=== PATIENT | male | born 1955 | race Caucasian/White ===

== ENCOUNTER 2022-05-05 10:12 | Outpatient (CLI) | payer OTHER, SELFPAY ==
[2022-05-05 13:53] LABS: Basophils Absolute Auto 0.03 K/uL (0.00-0.30); Basophils Percent Auto 0.5 % (0.0-3.0); Eosinophils Absolute Auto 0.15 K/uL (0.00-0.50); Eosinophils Percent Auto 2.7 % (0.0-7.0); Hematocrit 43.5 % (37.0-53.0); Hemoglobin* 14.3 gm/dL (13.5-17.5); Immature Granulocytes Abs Auto 0.01 K/uL (0.00-0.30); Lymphocytes Absolute Auto 1.43 K/uL (0.90-2.90); Lymphocytes Percent Auto 25.8 % (20-44); Mean Corpuscular HGB Conc 33 gm/dL (32-36); Mean Corpuscular Hemoglobin 30 pg (26-34); Mean Corpuscular Volume 90 fL (80-100); Monocytes Percent Auto 12.1 % (0.0-11.0); Neutrophils Absolute Auto 3.26 K/uL (1.7-7.0); Neutrophils Percent Auto 58.7 % (42.0-72.0); Platelet Count* 252 K/uL (140-440); RDW Coefficient of Variation % 12.7 % (11.5-15.5); Red Blood Count 4.82 m/uL (4.30-5.90); White Blood Count* 5.55 K/uL (4.50-11.00)
[2022-05-05 13:57] LABS: Slide Review Reflex No
[2022-05-05 14:04] LABS: Chloride* 108 mmol/L (96-114); Potassium* 5.1 mmol/L (3.6-5.1); Sodium* 141 mmol/L (135-149)
[2022-05-05 14:06] LABS: Cholesterol* 177 mg/dL (90-199); Creatinine* 1.1 mg/dL (0.5-1.5); Estimated Glomerular Filt Rate 73.58
[2022-05-05 14:07] LABS: Blood Urea Nitrogen* 31 mg/dL (7-30); Calcium* 8.8 mg/dL (8.4-10.6); Carbon Dioxide* 26 mmol/L (20-32); Glucose* 98 mg/dL (60-115); HDL Cholesterol* 70 mg/dL (>=40); LDL Cholesterol Calculated 91 mg/dL (<100); Triglycerides* 78 mg/dL (40-149)
[2022-05-06 14:11] LABS: Thyroid Stimulating Hormone* 0.059 uIU/mL (0.270-4.20)
== END 2022-05-05 10:13 | disposition home or self-care (01) ==
PROVIDERS: PCP Family Medicine; Visit Provider Family Medicine
DX: I10 Essential (primary) hypertension (principal); E03.9 Hypothyroidism, unspecified; M17.12 Unilateral primary osteoarthritis, left knee
CPT/HCPCS: 36415; 80048; 80061; 84443; 85025

== ENCOUNTER 2023-05-18 08:29 | Outpatient (CLI) | payer OTHER, SELFPAY | END 2023-05-18 08:30 | disposition home or self-care (01) | PROVIDERS: PCP Family Medicine; Visit Provider Family Medicine | DX: I10 Essential (primary) hypertension (principal); E03.9 Hypothyroidism, unspecified; Z13.6 Encounter for screening for cardiovascular disorders | CPT/HCPCS: 80048; 80061; 84443 ==

== ENCOUNTER 2024-02-25 11:22 | Outpatient (CLI) | payer OTHER, SELFPAY ==
--- OUTSIDE RECORDS SUMMARY | 2024-02-25 11:25 | XMS_ITS | Clinical Summary ---
Author Name Unknown Organization [email or web address] [facility] Address [place], [place] [address] Care Team Providers Care Returned Materials Inspector Name Role Phone Sascha Rendon MD Primary Care Provider + Allergies Active Allergy Reactions Criticality Noted Date Comments Lisinopril Cough 06/08/2017 Medications Medication Sig Dispensed Refills Start Date End Date Status NITROGLYCERIN 0.4 MG SUBLINGUAL TABIndications:Chest pain, unspecified take one beneath your tongue for chest pain may repeat every 5 minutes as need for chest pain 25 12 months 02/23/2008 Active irbesartan (AVAPRO) 300 mg tablet Take 300 mg by mouth once daily. Active aspirin chewable 81 mg chewable tablet Take 81 mg by mouth once daily with a meal. Active amLODIPine (NORVASC) 5 mg tablet Take 5 mg by mouth once daily. Active levothyroxine (SYNTHROID) 200 mcg tablet Take 200 mcg by mouth once daily. 07/31/2021 Active levothyroxine (SYNTHROID) 25 mcg tablet Take 25 mcg by mouth once daily. 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 Unspecified essential hypertension 03/28/2008 Routine general medical exam ination at a health care facility 08/31/2007 Overview: Colonoscopy - normal - 10/04 PSA - normal - 09/04 Screening for colon cancer Resolved Problems Problem Noted Date Diagnosed Date Resolved Date 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 tb Hypertension Mother Stroke Mother Thyroid Disease Sister 5 Good Health Sister 6 brain tumor vahid ign? pressure Increased ICP-resected Good Health Sister 7 Good Health Sister 8 Relation Name Status Comments Brother 1 Alive Brother 2 Brother 3 Daughter 1 Daughter 2 Daughter 3 Father (Age 74) Mother (Age 84) Sister 1 Alive Sister 2 Alive Sister 3 Alive Sister 4 Alive Sister 5 Sister 6 Sister 7 Sister 8 Social History Tobacco Use Types Packs/Day Years Used Date Smoking Tobacco: Never Smokeless Tobacco: Never Alcohol Use Standard Drinks/Week Comments Yes 0 (1 standard drink = 0.6 oz pur e alcohol) Social Sex and Gender Information Value Date Recorded Sex Assigned at Not on file Gender Identity Not on file Sexual Orientation Not on file Obstetrics History Last Filed Vital Signs Vital Sign Reading Time Taken Comments Blood Pressure 154/91 09/10/2021 11:14 AM HEALTH SYSTEMS ANALYST Pulse 56 09/10/2021 11:14 AM HEALTH SYSTEMS ANALYST Temperature 36.9 ??C (98.4 ??F) 08/11/2017 7:19 AM CD T Respiratory Rate 16 08/11/2017 8:45 AM CDT Oxygen Saturation 98% 09/10/2021 11:14 AM HEALTH SYSTEMS ANALYST Inhaled Oxygen Concentration - - Weight 102 kg (224 lb 14.4 oz) 09/10/2021 11:14 AM HEALTH SYSTEMS ANALYST Height 182.9 cm (6') 08/11/2017 7:19 AM CDT Body Mass Index 30.5 08/11/2017 7:19 AM CDT Plan of Treatment Health Maintenance Due Date Last Done Comments Tdap 1965 Depression screening for age 12+ 1966 Hepatitis C screening for age 18-79 1972 Tetanus booster 1974 Zoster (shingles) series for age 50+ (1 of 2) 2004 Lipids for age 45-75 02/23/2013 02/24/2008 BMI (ht and wt on same day) for age 18+ 07/26/2018 07/26/2017 Medicare Wellness for age 65+ 2019 Pneumococcal series for age 65+ (1 of 1 - PCV) 2019 COVID-19 vaccine series (3 - season) 2023 09/04/2021, 01/12/2021 Influenza for age 65+ 07/02/2024 10/22/2009 , 10/22/2009, 08/31/2007 Colonoscopy through age 75 08/11/2027 08/11/2017 Procedures Procedure Name Priority Date/Time Associated Diagnosis Comments COLONOSCOPY 08/11/2017 7:16 AM CDT LIPID PANEL Routine 02/24/2008 8:53 AM CDT Hypertension from Last 3 Months or Most Recently Relevant to Health Maintenance Results * COLONOSCOPY (08/11/2017 7:16 AM CDT) 08/11/2017 7:16 AM CDT Narrative Transcriptions Ryan Wylie MD - 08/11/2017 8:32 AM CDT Patient Name: Gómez Shah Procedure Date: 08/11/2017 Gender: Male Date of : 1955 Admit Type: Ambulatory Procedure: Colonoscopy Proceduralist: Ryan Wylie [facility] Referring MD: Rik Faust Indications/Pre-Op Diagnosis: Screening for colorectal malignantneoplasm Medications: Midazolam 5 mg IV, Fentanyl 100 microgramsIV Procedure Description: The patient had risks, benefits and alternatives explained to andgave informed consent. The patient had a stable cardiopulmonary status and judged an adequate candidate for conscious sedation. The colonoscope was passed through the anus and advanced to thececum, identified by appendiceal orifice and ileocecal valve. Thecolonoscopy was performed without difficulty. The patient tolerated the procedure well. The quality of the bowel preparation was adequate to identify polyps. Complications: No immediate complications. Estimated Blood Loss & Specimen: Estimated blood loss: none. Specimen collected - None Findings: The perianal and digital rectal examinations were normal. Multiple small and large-mouthed diverticula were found in thesigmoid colon and descending colon. The exam was otherwise without abnormality on direct and retroflexion views. Impressions/Post-Op Diagnosis: - Diverticulosis in the sigmoid colon and in the descending colon. - The examination was otherwise normal on direct and retroflexionviews. - No specimens collected. Recommendation: - Discharge patient to home. - Resume previous diet. - Continue present medications. - Repeat colonoscopy in 10 years for surveillance. Moderate Sedation: please see sedation report above. Sedation was given under thedirection of the endoscopist. Moderate (conscious) sedation was administered by the endoscopy nurse and supervised by the endoscopist. The following parameters were monitored: oxygen saturation, heart rate, blood pressure, andresponse to care. Total physician intraservice time was 23 minutes. Ryan Wylie, 08/11/2017 8:32:17 AM This report has been signed electronically. Note Initiated On: 08/11/2017 7:16 AM Ryan Wylie MD PROCEDURE ORD * LIPID PANEL (02/24/2008 8:53 AM CDT) CHOLESTEROL,TOTAL 181 110 - 199 mg/dL [facility] TRIGLYCERIDES 73 <150 mg/dL [facility] HDL CHOLESTEROL 64 >40 mg/dL [facility] CHOL/HDL RATIO 2.83 <4.51 [facility] LDL CHOLESTEROL 102 <131 mg/dL [facility] PATIENT STATUS Fasting [facility] Blood specimen (specimen) BLOOD SPECIMEN / Unknown 02/24/2008 8:53 AM CDT 02/24/2008 8:47 AM CDT Óscar Welsh MD [facility] [address] [place] [id number] from Last 3 Months or Most Recently Relevant to Health Maintenance Advance Directives Documents on File Type Date Recorded Patient Payment Manager Expl anation Healthcare Directive 01/10/2021 021 * Full Code (Latest Code Status on File) Date Activated Date Inactivated Comments 08/11/2017 6:52 AM 08/11/2017 11:01 AM * No Code Status Date Activated Date Inactivated Comments 04/18/2010 2:55 PM 08/11/2017 6:52 AM also sees lizandro moreira * No Code Status Date Activated Date Inactivated Comments 04/18/2010 2:55 PM 04/18/2010 2:55 PM also sees lizandro ballesteros * Full Code Date Activated Date Inactivated Comments 02/01/2009 10:16 PM 02/05/2009 3:15 PM * Full Code Date Activated Date Inactivated Comments 02/01/2009 1:34 PM 02/01/2009 10:16 PM Care Teams Returned Materials Inspector Relationship Specialty Start Date End Date Sascha Rendon MD [address] [place] [address] PCP - General Family Practice 09/10/21
== END 2024-02-25 11:23 | disposition home or self-care (01) ==
PROVIDERS: PCP Family Medicine; Visit Provider Family Medicine
DX: E03.9 Hypothyroidism, unspecified (principal); I10 Essential (primary) hypertension; Z13.220 Encounter for screening for lipoid disorders
CPT/HCPCS: 80048; 80061; 84439; 84443

== ENCOUNTER 2025-02-14 10:34 | Outpatient (CLI) | payer MEDICARE, BC, SELFPAY | END 2025-02-14 10:35 | disposition home or self-care (01) | PROVIDERS: PCP Family Medicine; Visit Provider Family Medicine | DX: E03.9 Hypothyroidism, unspecified (principal); I10 Essential (primary) hypertension; N41.1 Chronic prostatitis; Z13.6 Encounter for screening for cardiovascular disorders; Z12.5 Encounter for screening for malignant neoplasm of prostate | CPT/HCPCS: 80048; 80061; 84439; 84443; G0103 ==

== ENCOUNTER 2025-03-07 07:58 | Outpatient (CLI) | payer MEDICARE, BC, SELFPAY ==
--- NOTE | 2025-03-07 08:15 | CRLHL7_ITS ---
For Patients: As a result of the Century Cures Act, medical imaging exams and procedure reports are released immediately into your electronic medical record. You may view this report before your referring provider. If you have questions, please contact your health care provider. EXAM: MRI OF THE LEFT KNEE, WITHOUT CONTRAST CLINICAL INDICATION: Knee pain. Osteoarthritis. PRIOR SURGERY: Nonspecific prior surgery reported. COMPARISON PLAIN FILMS: 13 December 2019. COMPARISON CROSS-SECTIONAL IMAGING STUDIES: MRI 15 December 2019 TECHNICAL: Axial, sagittal and coronal T1, PD, PD FS and T2 FS images. FINDINGS: OSSEOUS STRUCTURES: Presumed enthesopathic small cysts and edema anterior from the intercondylar notch origin of the ACL. Minimal similar changes in the tibial spine insertion under the PCL and medial meniscal root. JOINT SPACE AND CAPSULE: Effusion: No significant joint effusion or synovitis. Joint Bodies: None seen. CRUCIATE LIGAMENTS: Anterior Cruciate Ligament: Edematous striated and mildly expanded with expected course. Posterior Cruciate Ligament: Normal. EXTENSOR MECHANISM: Distal Quadriceps Tendon: Normal. Patellar Tendon: Crossing bifid patellar tendon from surgical stabilization/realignment. Medial Patellar Retinaculum and Medial Patellofemoral Ligament: Normal. Lateral Patellar Retinaculum: Wispy to near absent suggest prior lateral release. Normal patellar alignment. No patella kale. Somewhat shallow trochlear depth and diminished lateral trochlear inclination. Tibial tuberosity to trochlear groove distance is normal. MEDIAL COLLATERAL LIGAMENT AND POSTEROMEDIAL CORNER COMPLEX: Medial Collateral Ligament: Mildly thick heterogeneous low signal proximal ligament may be from remote injury. Medial Head of the Gastrocnemius and Semimembranosus Tendons: Normal. LATERAL COLLATERAL LIGAMENT COMPLEX AND POSTEROLATERAL CORNER COMPLEX: Fibular Collateral Ligament: Normal. Distal Biceps Femoris Tendon Complex: Normal. Iliotibial Band: Normal. Popliteus Tendon: Normal. Posterolateral Corner Capsule: Normal. MEDIAL COMPARTMENT: Medial Meniscus: Somewhat small remnant of the posterior horn with some indistinct marginal degenerative tearing particularly at the inner 3rd. Mild extrusion of the body with mucoid intermediate signal in the substance. Articular Cartilage: Grade 2 to grade 3 cartilage thinning and up to grade 4 fissuring at the outer margin of the plateau with mild grade 2 thinning through the remaining plateau and high-grade 2 cartilage thinning throughout the femoral condyle. Small marginal osteophytes of femur and plateau. LATERAL COMPARTMENT: Lateral Meniscus: Normal size and morphology without tear. Articular Cartilage: Mild grade 2 chondromalacia at the posterior plateau and posterior condyle. PATELLOFEMORAL COMPARTMENT: Articular Cartilage: Grade 2 to grade 3 thinning median ridge and medial facet with grade 4 chronic cartilage loss trochlear apex lateral margin greater than medial. Marginal osteophytes. PERIARTICULAR SOFT TISSUES: Popliteal Cyst: Small mostly decompressed cyst. Periarticular Cysts or Ganglia: None. Bursae: No prepatellar, superficial infrapatellar, deep infrapatellar, pes anserinus or semimembranosus/MCL bursitis. Musculature: No muscle atrophy or muscle edema. Subcutaneous and Soft Tissues: No subcutaneous or soft tissue mass, edema or fluid collection. Neurovascular Structures: Normal. Tibiofibular joint: Degenerative joint with mild narrowing, marginal spurring and some subchondral edema in the fibular head. IMPRESSION: 1. Severe osteoarthritis patellofemoral compartment. Degenerative chondromalacia and osteoarthritis more moderate in the medial compartment. 2. Postoperative changes from patellar stabilization and realignment. 3. Likely prior partial meniscectomy posterior horn medial meniscus with some marginal degenerative tearing recurrent or persistent. 4. Mucoid degeneration ACL with some enthesopathic marrow changes. 5. Mild degenerative arthrosis proximal tibiofibular joint. Dictated by Dawood Taylor MD @ 03/08/2025 8:32:29 AM (Electronically Signed)
== END 2025-03-07 07:59 | disposition home or self-care (01) ==
LOC: MRI 08:00
PROVIDERS: PCP Family Medicine; Visit Provider Family Medicine
DX: M17.12 Unilateral primary osteoarthritis, left knee (principal); M25.462 Effusion, left knee; S83.242A Other tear of medial meniscus, current injury, left knee, initial encounter
CPT/HCPCS: 73721

== ENCOUNTER 2025-07-18 11:16 | Outpatient (CLI) | payer MEDICARE, BC, SELFPAY ==
[2025-07-18 11:31] VITALS: BP 153/86; PULSE 68; RESP 16; TEMP 36.6; O2SAT 96
--- NOTE | 2025-07-18 11:49 | P.PCN_ITS ---
Procedure Note Time Seen by Provider: 12:00 Date Seen: 07/18/25 Provider Contact Time: 13:00 Date of procedure: 07/18/25 Will [facility] bill your pro fee for this procedure?: Yes Procedure: CRYONEUROLYSIS TREATMENT REPORT DATE OF PROCEDURE: 07/18/2025 REFERRING PROVIDER: Ronny Rendon TREATMENT PROVIDER: Paresh Alexander PREOPERATIVE DIAGNOSIS: Unilateral primary osteoarthritis, left knee POSTOPERATIVE DIAGNOSIS: Unilateral primary osteoarthritis, left knee? PROCEDURE: Cryoneurolysis of Multiple Sensory Nerves of the Knee ANESTHESIA: Local INDICATIONS: The patient is a very pleasant 70-year-old male with primary osteoarthritis involving the left knee who presents today for cryoneurolysis of multiple sensory nerves to the knee for severe knee pain.?Patient medical history was reviewed. The risks, benefits, treatment alternatives, and complications were discussed with the patient, including but not limited to bleeding, infection, nerve or tissue damage.?Informed consent was obtained. ? PRE-TREATMENT MOTOR ASSESSMENT/PAIN SCORE: Patient was able to demonstrate intact gross motor function with plantarflexion, dorsiflexion, adduction, abduction, hip flexion, and extension of the lower extremity.?Pre-treatment pain score of 6/10 in the left knee. DESCRIPTION OF PROCEDURE: After obtaining informed consent, the patient was brought back to the treatment room and positioned supine on the table.?The left lower extremity was prepped with Chlorhexadine.?We began the procedure by performing our procedural pause.?Once this was completed and verified to be accurate, I began the procedure by identifying the nerves with the use of bedside ultrasound.?After the nerves were identified, the skin was marked and, using 1% lidocaine plain, the area of the nerves were anesthetized. ? After the anesthetic was administered, the Smart Tip 2190 cryoneurolysis needle was inserted into the treatment sites using ultrasound guidance.?Treatment was then initiated on the left lower extremity with the following nerves treated: superior genicular, superior medial genicular, superior lateral genicular, inferior medial genicular nerves. At the termination of the treatment, the cryoneurolysis needle was removed with the patient's skin cleansed and compression wrap applied. Patient tolerated the procedure without any incident or concern.? Patient was then instructed to stand, mobilize the joint, and was examined to ensure gross motor skills were intact. COMPLICATIONS: None POST-TREATMENT PAIN SCORE: 0/10 in the left knee DISPOSITION: Discharge instructions were given to the patient with education on the post-procedure expectations. Patient was instructed to call the Ortho clinic with any post-procedure concerns or questions. Anesthesia: none
[2025-07-18 13:16] VITALS: BP 174/99; PULSE 68; RESP 16; O2SAT 95
== END 2025-07-18 13:21 | disposition home or self-care (01) ==
PROVIDERS: PCP Family Medicine; Visit Provider Nurse Anesthetist, Certified Registered
DX: M17.12 Unilateral primary osteoarthritis, left knee (principal)
CPT/HCPCS: 64640; 76942; C9809

== ENCOUNTER 2025-07-23 10:42 | Outpatient (CLI) | payer MEDICARE, BC, SELFPAY | END 2025-07-23 10:43 | disposition home or self-care (01) | PROVIDERS: PCP Family Medicine; Visit Provider Family Medicine | DX: I10 Essential (primary) hypertension (principal); E03.9 Hypothyroidism, unspecified | CPT/HCPCS: 80048; 84439; 84443; 85025 ==

== ENCOUNTER 2025-08-02 06:19 | Day surgery (SDC) | payer MEDICARE, BC, SELFPAY ==
[2025-08-02] VITALS (19 sets, daily range): BP systolic 93–164; BP diastolic 62–107; PULSE 55–71; RESP 14–16; TEMP 36.1–36.7; O2SAT 90–97; BMI 30.4
[2025-08-02] MEDS: LACTATED RINGERS 1000 ML 1,000 ML 100 ML IV ×2 (06:25→08:42)
[2025-08-02] MEDS: CELECOXIB 200 MG CAPSULE PO (07:50)
[2025-08-02] MEDS: MIDAZOLAM HCL 1 MG/ML inj IVP (07:50)
[2025-08-02] MEDS: OXYCODONE (CR) 10 MG TAB.ER.12H PO (07:50)
[2025-08-02] MEDS: ACETAMINOPHEN 500 MG TABLET 1000 MG PO (07:51)
[2025-08-02] MEDS: SODIUM CHLORIDE 0.9 % (FLUSH) 10 ML SYRINGE IVF (07:52)
--- NOTE | 2025-08-02 07:52 | SUR.PREOP ---
TIME?OUT:?0719 PT/RN/MDA?VERIFICATION?OF?SURGICAL?SITE,?PROCEDURE,?AND?CONSENT OBTAINED?PRIOR?TO?INVASIVE?PROCEDURE.
--- NOTE | 2025-08-02 07:55 | SUR.PREOP ---
TIME?OUT:?0749 PT/RN/MDA?VERIFICATION?OF?SURGICAL?SITE,?PROCEDURE,?AND?CONSENT OBTAINED?PRIOR?TO?INVASIVE?PROCEDURE.
[2025-08-02] MEDS: TRANEXAMIC ACID 100 MG/ML INJ 1000 MG IV (08:32)
--- NOTE | 2025-08-02 08:43 | W.PM.NB ---
Nerve Block Nerve Block Time Seen by Provider: 07:50 Date Seen: 08/02/25 Type of block requested by surgeon for post-operative analgesia: adductor canal Side: left Time out performed: Yes Verification of patient name: Yes Verification of date of : Yes Site marking: site marked Name of person performing procedure: Brad Reveles Continuous monitoring Was continuous monitoring of O2 sat, B/P, financial reporting advisor, recorded every 15 minutes?: Yes Procedure Checklist: sterile prep, needles and gloves Ultrasound guided. Images saved: Yes Medications given in 5ml increments after negative aspiration: Ropivicaine %: 0.5 mL: 30 Needle gauge: 20 Precedex (mcg): 25 Patient tolerated procedure well: Yes Additional comments: Injected in 5mL increments after negative aspiration Block Charges Block Charge (with Pro Fee): Femoral Nerve Use of Ultrasound Machine for Block: Yes- US Guidance/pain block
--- NOTE | 2025-08-02 08:43 | W.PM.NB ---
Nerve Block Nerve Block Time Seen by Provider: 07:55 Date Seen: 08/02/25 Type of block requested by surgeon for post-operative analgesia: geniculars Side: left Time out performed: Yes Verification of patient name: Yes Verification of date of : Yes Site marking: site marked Name of person performing procedure: Brad Reveles Continuous monitoring Was continuous monitoring of O2 sat, B/P, air sampling and monitoring, recorded every 15 minutes?: Yes Procedure Checklist: sterile prep, needles and gloves Ultrasound guided. Images saved: No Medications given in 5ml increments after negative aspiration: Ropivicaine %: 0.5 mL: 12 Needle gauge: 25 Patient tolerated procedure well: Yes Additional comments: Injected in 4 mL increments after negative aspiration Block Charges Block Charge (with Pro Fee): Genicular Nerve Block Use of Ultrasound Machine for Block: No
--- NOTE | 2025-08-02 09:31 | CRLHL7_ITS ---
For Patients: As a result of the Cures Act, medical imaging exams and procedure reports are released immediately into your electronic medical record. You may view this report before your referring provider. If you have questions, please contact your health care provider. Indication: Postop TKA Technique: Two views left knee Findings/Impression: Hardware from a left total knee arthroplasty is in satisfactory position. Bone alignment is normal. No sign of acute fracture. Postop changes are within normal limits. Dictated by Sascha Apodaca MD @ 08/02/2025 11:11:00 AM (Electronically Signed)
--- NOTE | 2025-08-02 09:33 | PM.ORPRC ---
Procedure Note Date of procedure: 08/02/25 Procedure: PREOPERATIVE DIAGNOSIS: Left knee osteoarthritis POSTOPERATIVE DIAGNOSIS: Left knee osteoarthritis NAME OF OPERATION: Left total knee arthroplasty SURGEON: Naun Rendon MD VICE PRESIDENT OF PRODUCT MARKETING: Kelli Hurt PA-C ANESTHESIA: Spinal ESTIMATED BLOOD LOSS: 0 mL COMPLICATIONS: None SPECIMENS: None DRAINS: None PREOPERATIVE ANTIBIOTICS: Ancef 2g, antibiotic impregnated cement IMPLANTS: 1. J&J Attune # 7 posterior stabilized femur 2. # 8 fixed-bearing tibia 3. # 7 posterior stabilized, 7 mm fixed-bearing polyethylene 4. 41 patella INDICATIONS: The patient is a 70-year-old with a longstanding history of severe, unrelenting left knee pain secondary to end-stage (grade IV) left knee osteoarthritis. Despite appropriate nonoperative management, including activity modification, anti-inflammatories, [id number] pain medication, bracing, physical therapy, and injections they continue to have pain and disability. Operative intervention was offered. The risks, benefits and expected outcomes were discussed in detail. These included but were not limited to: Infection, bleeding, injury to blood vessel or nerve, venous thromboembolism. All questions were answered to their satisfaction. Use of an magistrate assistant was necessary throughout the case for patient positioning and safety, soft tissue retraction, and closure. PROCEDURE: Spinal anesthesia was administered. The patient was placed supine on the operating table. The magistrate assistant made sure the patient was positioned appropriately. The lower extremity was prepped and draped in the usual sterile fashion. The limb was exsanguinated with the Ezequiel bandage. The pneumatic tourniquet was inflated to 225mmHg. A standard anterior incision was made with the knee in flexion. Subcutaneous dissection was sharply taken through fascial layer #1. Full-thickness medial and lateral flaps were elevated. The magistrate assistant retracted the soft tissues and protected them throughout the case. A standard subvastus approach was made. The patella was subluxed. The infrapatellar fat pad was preserved. The menisci and cruciate ligaments were sharply d?brided. Marginal osteophytes were d?brided with the rongeur. The drill was used to penetrate the femoral canal. The intramedullary femoral guide was placed for a 5-degree valgus cut, removing 10 mm off the distal femur. The saw was used to make the cut. Whitesides line and the trans epicondylar axis were marked. The femoral sizing guide was pinned onto the distal femur. Three degrees of external rotation nicely parallels the transepicondylar axis. Pins were placed for posterior referencing. The four-in-one cutting guide was pinned onto the distal femur. The anterior, posterior, and chamfer cuts were made. The magistrate assistant protected the collateral ligaments. The box cutting guide was pinned. The box cuts were made. The boxed trial was placed and was an excellent fit. Drill holes for the lugs were made. Attention was then turned to the proximal tibia. The extramedullary intramedullary tibial guide was placed for a neutral varus/valgus cut with 5 degrees of posterior slope, removing 2 mm based off the medial tibial surface. The magistrate assistant protected the collateral ligaments and the neurovascular bundle. The saw was used to make the cut. Trial components were placed. The knee was nicely balanced in both flexion and extension. The trial components were removed. The tray was placed in appropriate rotation, parallel to our tibial cutting pins. It was pinned by the magistrate assistant and the drill and the punch were used. The tray was removed. The punch was used again. We placed a bone plug in the femoral canal. Attention was then turned to the patella. Nikolai patellar thickness was 26 mm. The lobster claw resection guide was used with the 9.5 mm annette. The saw was used to make the cut. Drill holes were made by the magistrate assistant. The trial was placed and was an excellent fit. Cancellous surfaces were irrigated with pulse lavage and thoroughly dried by the magistrate assistant. We cemented the tibial component, then the femoral component. We impacted the 7 mm polyethylene onto the tibial tray. The knee was brought into full extension. We then cemented the patellar component. Excessive cement was removed. The cement was allowed to harden. The knee was taken through a range of motion and was found to be nicely balanced in both flexion and extension. The patella tracks centrally. The magistrate assistant did a three minute dilute Betadine solution soak. The magistrate assistant irrigated the wound with 3 liters of normal saline via pulse lavage. The magistrate assistant reapproximated the extensor mechanism with #1 Vicryl in an interrupted [id number]-[id number] fashion. The magistrate assistant then ran the extensor mechanism with a #1 PDO Stratafix. The magistrate assistant closed the subcutaneous tissues with a 3-0 Stratafix and the skin with a running 3-0 Stratafix in a subcuticular fashion. Glue was used to seal the skin. The magistrate assistant placed a dry dressing. Sponge and needle counts were correct x2. The patient tolerated the procedure well. There were no apparent complications. They were carefully transferred to the hospital bed and taken to the postanesthesia care unit in satisfactory condition. PLAN: The patient will be mobilized with physical therapy. Aspirin will be used for DVT prophylaxis. They will be discharged to home once medically appropriate.
--- NOTE | 2025-08-02 10:34 | P.ANES_ITS ---
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
--- NOTE | 2025-08-02 10:34 | W.ANESCHARGE ---
Anesthesia Charges Start Date/Time Anesthesia Start Date: 08/02/25 Anesthesia Start Time: 08:11 Stop Date/Time Anesthesia Stop Date: 08/02/25 Anesthesia Stop Time: 10:35 Summary Extremes of Age - Over 70 or under 1: MDA Coding CPT Codes CPT Codes: ANESTH KNEE ARTHROPLASTY - 07327 ([id number]) P2 - PATIENT W/MILD SYST DISEASE, QK - LINE CREW SUPERVISOR 2-4 CNCRNT ANES PROC, QX - TESTING LEAD SVC W/ MD MED DIRECTION Additional Codes: Summary - Extremes of Age - Over 70 or under 1: MDA ([id number])
--- NOTE | 2025-08-02 10:36 | P.ANES_ITS ---
Anesthesia Charges Start Date/Time Anesthesia Start Date: 08/02/25 Anesthesia Start Time: 08:11 Stop Date/Time Anesthesia Stop Date: 08/02/25 Anesthesia Stop Time: 10:35 Summary Extremes of Age - Over 70 or under 1: ACOUSTICAL TILE PATTERNMAKER Coding CPT Codes CPT Codes: ANESTH KNEE ARTHROPLASTY - 90121 ([id number]) P2 - PATIENT W/MILD SYST DISEASE, QK - ARCHITECTURAL DRAFTER 2-4 CNCRNT ANES PROC, QX - ACOUSTICAL TILE PATTERNMAKER SVC W/ MD MED DIRECTION Additional Codes: Summary - Extremes of Age - Over 70 or under 1: ACOUSTICAL TILE PATTERNMAKER ([id number])
--- NOTE | 2025-08-02 10:36 | W.ANESCHARGE ---
Anesthesia Charges Start Date/Time Anesthesia Start Date: 08/02/25 Anesthesia Start Time: 08:11 Stop Date/Time Anesthesia Stop Date: 08/02/25 Anesthesia Stop Time: 10:35 Summary Extremes of Age - Over 70 or under 1: GLUE MIXER Coding CPT Codes CPT Codes: ANESTH KNEE ARTHROPLASTY - 09339 ([id number]) P2 - PATIENT W/MILD SYST DISEASE, QK - SOOT BLOWER 2-4 CNCRNT ANES PROC, QX - GLUE MIXER SVC W/ MD MED DIRECTION Additional Codes: Summary - Extremes of Age - Over 70 or under 1: GLUE MIXER ([id number])
--- NOTE | 2025-08-02 10:53 | SUR.PHASEI ---
Post op xrays complete
[2025-08-02] MEDS: PROCHLORPERAZINE 5 MG/ML VIAL IVP (13:05)
--- NOTE | 2025-08-02 14:22 | SUR.PHASEII ---
1330: Patient in restroom with spouse assisting. Pt voided. On returning to wheelchair, pt had voided again. Pt returned to bathroom with spouse and nurse assisting. Pt redressed in dry clothes and brief. Pt returned to wheelchair and proceeded to PT.
== END 2025-08-02 14:12 | disposition home or self-care (01) ==
LOC: OR 06:19
PROVIDERS: PCP Family Medicine; Visit Provider Orthopaedic Surgery
PROC: (CPT 27447; principal; 2025-08-02 07:45)
DX: M17.12 Unilateral primary osteoarthritis, left knee (principal); G89.18 Other acute postprocedural pain; E03.9 Hypothyroidism, unspecified; Q61.5 Medullary cystic kidney; I10 Essential (primary) hypertension; N40.0 Benign prostatic hyperplasia without lower urinary tract symptoms
CPT/HCPCS: 27447; 01402; 64447; 64454; 73560; 76942; 97110; 97116; 97161; 97530; 99100; A9270; C1776; J0690; J0780; J1100; J2250; J2405; J2704; J2795; J3010; J7120